=== PATIENT | female | born 1965 | race Caucasian/White ===

== ENCOUNTER 2018-02-26 19:43 | Emergency (ER) | payer OTHER ==
[~2018-02-26] VITALS: Ht 157.5 cm; Wt 71.7 kg
[2018-02-26 19:53] VITALS: BP 104/52
[2018-02-26 21:24] VITALS: BP 104/52
== END 2018-02-26 21:24 | disposition home or self-care (01) ==
LOC: MED 19:43
DX: J11.1 Influenza due to unidentified influenza virus with other respiratory manifestations (principal); J45.909 Unspecified asthma, uncomplicated
CPT/HCPCS: 99283

== ENCOUNTER 2018-04-15 16:54 | Emergency (ER) | payer OTHER ==
[~2018-04-15] VITALS: Ht 157.5 cm; Wt 71.7 kg
[2018-04-15 17:00] VITALS: BP 122/71
--- NOTE | 2018-04-15 17:00 | NUR ---
PT BROUGHT TO BED 8 FOR BEDSIDE TRIAGE
--- NOTE | 2018-04-15 17:16 | NUR ---
PT BIB SELF WITH C/O NONPRODUCTIVE COUGH AND FEVERS X 2 DAYS. ON EXAM LUNGS CLEAR BILAT AND NO EVIDENCE OF LABORED BREATHING NOTED. PT PLACED ON MONITOR, BED IN LOW POSITION, WILL CONTINUE TO MONITOR CLOSELY.
--- NOTE | 2018-04-15 17:54 | NUR ---
PA AT BEDSIDE PERFORMING MSE.
[2018-04-15] MEDS ORDERED: KETOROLAC 30 MG/ML VIAL IM ONE (18:00)
[2018-04-15 19:05] VITALS: BP 125/75
--- NOTE | 2018-04-15 19:07 | NUR ---
Patient discharged with v/s stable. Written and verbal after care instructions given and explained. Patient alert, oriented and verbalized understanding of instructions. Ambulatory with steady gait. All questions addressed prior to discharge. ID band removed. Patient advised to follow up with PMD. Rx of TAMIFLU, PROMETHAZINE, IBUPROFEN given. Patient educated on indication of medication including possible reaction and side effects. Opportunity to ask questions provided and answered.
== END 2018-04-15 19:07 | disposition home or self-care (01) ==
LOC: MED 16:54
DX: J10.1 Influenza due to other identified influenza virus with other respiratory manifestations (principal); J45.909 Unspecified asthma, uncomplicated
CPT/HCPCS: 36415; 87804; 96372; 99283; J1885

== ENCOUNTER 2018-04-18 15:28 | Emergency (ER) | payer OTHER ==
[~2018-04-18] VITALS: Ht 157.5 cm; Wt 65.0 kg
[2018-04-18 15:35] VITALS: BP 135/76
--- NOTE | 2018-04-18 15:40 | NUR ---
52 YO F BIB SELF W/ C/O HEMOPTYSIS TODAY. PT STATES IT HAPPENED AT 12, 1230 AND 1300. FIRST EPISODE WAS A LOT OF BLOOD, THE SECOND 2 EPISODES WERE PINK-TINGED. PT REPORTS THAT SHE HAS HAD A "BAD" PRODUCTIVE COUGH X 2 DAYS. RPEORTS DIARRHEA X 2 DAYS. SKIN IS INTACT, PINK/WARM/DRY; AAOX4, PERRL, WITH EVEN AND STEADY GAIT; LUNGS CLEAR BL, BREATHING UNLABORED; HR EVEN AND REGULAR, BL PERIPHERAL PULSES PRESENT; BS ACTIVE X4; PT DENIES ANY FEVER, CP, SOB, OR COUGH AT THIS TIME; PT STATES 0/10 PAIN AT THIS TIME; VSS; PATIENT POSITIONED FOR COMFORT; HOB ELEVATED; BEDRAILS UP X2; BED DOWN.
--- NOTE | 2018-04-18 15:46 | NUR ---
PT AMBULATED TO ER BED 04
[2018-04-18] MEDS ORDERED: KETOROLAC 60 MG/2 ML VIAL IM ONE (16:10)
[2018-04-18] MEDS ORDERED: cefTRIAXone 1,000 MG in LIDOCAINE 1% ***ER ONLY *** 2.1 ML IM ONE (16:10)
[2018-04-18] MEDS ORDERED: ALBUTEROL SULFATE/IPRATROPIU 3 ML SOL IH ONE (16:10)
[2018-04-18] MEDS ORDERED: hydrOXYzine HCL 25 MG TAB PO ONE (16:10)
[2018-04-18] MEDS ORDERED: cefTRIAXone 1,000 MG VIAL ONE (16:21)
[2018-04-18] MEDS ORDERED: LIDOCAINE MPF 1% 5mL VIAL ONE (16:22)
--- NOTE | 2018-04-18 16:23 | NUR ---
CALLED RT TO INFORM OF BREATHING TREATMENT AT THIS TIME.
[2018-04-18 18:57] VITALS: BP 135/78
--- NOTE | 2018-04-18 18:57 | NUR ---
Patient discharged with v/s stable. Written and verbal after care instructions given and explained. Patient alert, oriented and verbalized understanding of instructions. Ambulatory with steady gait. All questions addressed prior to discharge. ID band removed. Patient advised to follow up with PMD. Rx of TAMIFLU given. Patient educated on indication of medication including possible reaction and side effects. Opportunity to ask questions provided and answered.
== END 2018-04-18 18:57 | disposition home or self-care (01) ==
LOC: MED 15:28
DX: J10.1 Influenza due to other identified influenza virus with other respiratory manifestations (principal); J45.909 Unspecified asthma, uncomplicated
CPT/HCPCS: 71045; 94640; 96372; 99283; J0696; J1885; J2001; J7620; Q0092